=== PATIENT | female | born 1960 | race Caucasian/White ===

== ENCOUNTER 2023-12-24 07:04 | Day surgery (SDC) | payer BC, SELFPAY ==
[2023-12-17 07:25] VITALS: BMI 26.3
[2023-12-17 08:52] LABS: Hematocrit 45.1 % (37.0-47.0); Hemoglobin 15.5 g/dL (12.0-16.0); Mean Corp Hgb Conc. 34.4 g/dL (33.0-37.0); Mean Corpuscular Hgb 34.1 pg (27.0-31.0); Mean Corpuscular Volume 99.3 fL (81.0-99.0); Mean Platelet Volume 10.1 fL (7.4-10.4); Platelet Count 296 10^3/uL (130-400); Red Blood Cell Count 4.54 10^6/uL (4.20-5.40); Red Cell Dist. Width 13.3 % (11.5-14.5)
[2023-12-17 09:16] LABS: ALT (SGPT) 21 U/L (0-35); AST (SGOT) 25 U/L (14-36); Albumin 4.5 g/dl (3.5-5.0); Alkaline Phosphatase 66 U/L (38-126); Blood Urea Nitrogen 15 mg/dl (7-17); Calcium 9.4 mg/dl (8.4-10.2); Carbon Dioxide 28 mmol/L (22-30); Chloride 105 mmol/L (98-107); Estimated Creatinine Clearance 71 ml/min; Glucose 102 mg/dl (70-99); Potassium 4.1 mmol/L (3.5-5.1); Sodium 136 mmol/L (135-145); Total Bilirubin 0.5 mg/dl (0.2-1.3); Total Protein 7.4 g/dl (6.3-8.2); eGFR > 60.00
--- NOTE | 2023-12-17 12:16 | PTCARENOTE ---
Patients 2/5 EKG Abnormal- reviewed by Dr. Becerra, no additional interventions required
[2023-12-24] VITALS (13 sets, daily range): BP systolic 145–182; BP diastolic 65–86; BMI 26.3
[2023-12-24] MEDS: TYLENOL 1000 MG PO (10:49)
[2023-12-24] MEDS: NORMOSOL-R 1000 IV (10:58)
--- NOTE | 2023-12-24 12:27 | HP.FOC2 ---
Focused History & Physical
Chief Complaint
HPI:
Chief Complaint: Gallstones, abdominal pain
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 These typically
occur in the latter part of the day and early evening. She often does not awaken overnight. It is not present in the morning. Pain is located at the right costal margin and epigastric area rating to her back. No nausea or vomiting. She has
chronic constipation managed with Linzess and stool softeners. She has undergone extensive GI evaluation including upper and lower endoscopy, CT imaging as well as ultrasound. Essentially only notable finding is 17 mm gallstone, no biliary ductal
dilation. Patient presents today for suspected biliary colic for cholecystectomy.
Relevant Past Medical History: Other (High cholesterol, osteoporosis, vitamin D deficiency, insomnia, osteoarthritis, IBS-constipation, GERD, fibromyalgia, RA)
Relevant Social History: Tobacco Use
Relevant Family History: Negative
Relevant Past Surgical History: Positive for (Bladder sling, ptosis, bone spur on fifth toe, wisdom teeth extraction)
Review of Systems
Review of Pertinent Systems: All Systems Negative
Medication
See Medication form for detailed medications: Yes
Medication List (including Herbals & OTC):
melatonin 5 mg capsule 2.5 mg PO HS 05/09/12
linaclotide 290 mcg capsule (Linzess) 290 mcg PO DAILY 04/01/21
pantoprazole 40 mg tablet,delayed release 40 mg PO DAILY 04/01/21
trazodone 100 mg tablet 100 mg PO HS 04/01/21
Probiotic 1 cap PO DAILY 12/20/23
coenzyme Q10 100 mg capsule (CoQ-10) 200 mg PO DAILY 12/20/23
collagen 3 tab PO DAILY 12/20/23
ergocalciferol (vitamin D2) 1,250 mcg (50,000 unit) capsule (Vitamin D2) 1,250 mcg PO TUTH 12/20/23
hydroxychloroquine 200 mg tablet (Plaquenil) 200 mg PO BID 12/20/23
ibuprofen 600 mg tablet 600 mg PO Q6H PRN pain 12/20/23
multivitamin 1 tab PO DAILY 12/20/23
rosuvastatin 10 mg tablet (Crestor) 10 mg PO DAILY 12/20/23
sour wiley extract 1,000 mg capsule (Tart Wiley Extract) 1,000 mg PO DAILY 12/20/23
sulfasalazine 500 mg tablet 500 mg PO BID 12/20/23
turmeric 900 mg PO DAILY 12/20/23
Medications Reviewed: Yes
Allergies and Reactions
Patient has Allergies: No
Noted Allergies and Reactions:
Allergy/AdvReac Type Severity Reaction Status Date / Time
No Known Allergies Allergy Verified 12/20/23 08:02
Pertinent Physical Exam
All Other Systems: Negative
Head/Neck: Normal
Lungs: Normal
Heart: Normal
Abdomen: Normal
Extremities: Normal
Neurological: Normal
Diagnosis / Assessment
63-year-old female with suspected symptomatic cholelithiasis presenting today for cholecystectomy
Plan / Procedure
Laparoscopic cholecystectomy
Anesthesia/Sedation to be done by Anesthesia Provider: Yes
--- NOTE | 2023-12-24 12:30 | W.SUR.PREOP ---
Pre-Operative Surgical Note
-
I have examined this patient prior to the performance of the scheduled procedure.
The patient's condition is unchanged from the time of the current History and
Physical and the patient is able to undergo the scheduled procedure.
--- NOTE | 2023-12-24 13:45 | W.IMMPOSTOP ---
Addendum entered and electronically signed by Kong Rodriguez MD 12/24/23 14:29:
#[id number]
Original Note:
Surgical Immed Post Op Note
-
Primary Surgeon: Jennifer
Assisting Surgeon: Cecilia MAC
Pre-op Diagnosis: symptomatic cholelithiasis
Post-op Diagnosis: chronic calculous cholecystitis
Procedure Performed: lap debbie
Anesthesia Type: GETA + 0.25% Marcaine
Specimen / Cultures: GB
Estimated Blood Loss: 4mL
Complications: none
Operative Findings: Chronic adhesions to gallbladder. At least 1 stone. Cystic duct and artery individually identified and controlled with hemoclips. Gallbladder removed intact and extracted at epigastric 12 mm trocar site. Few filmy right-sided
abdominal wall adhesions in the region of the ascending colon.
== END 2023-12-24 15:35 | disposition home or self-care (01) ==
LOC: SDS 07:04
PROVIDERS: ATTENDING PHYSICIAN Surgery; FAMILY PHYSICIAN Nurse Practitioner Family
DX: K80.10 Calculus of gallbladder with chronic cholecystitis without obstruction (principal); D13.5 Benign neoplasm of extrahepatic bile ducts; K82.8 Other specified diseases of gallbladder
CPT/HCPCS: 47562; 88304; 36415; 80053; 85027; 93005

== ENCOUNTER → 2023-12-28 08:50 | Outpatient (REF) | payer BC, SELFPAY ==
[2023-12-28 09:36] LABS: % Basophils 0.7 % (0-2); % Eosinophils 1.5 % (0-6); % Immature Granulocytes 0.5 % (0-0.5); % Lymphocytes 18.2 % (20.5-51.1); % Monocytes 6.4 % (1.7-9.3); % Neutrophils 72.7 % (42.2-75.2); Absolute Basophils 0.1 10^3/uL (0-0.2); Absolute Eosinophils 0.2 10^3/uL (0-0.7); Absolute Immature Granulocytes 0.1 10^3/uL (0-0.05); Absolute Lymphocytes 2.2 10^3/uL (1.2-3.4); Absolute Monocytes 0.8 10^3/uL (0.1-0.6); Absolute Neutrophils 8.7 10^3/uL (1.4-6.5); Hematocrit 46.7 % (37.0-47.0); Hemoglobin 16.6 g/dL (12.0-16.0); Mean Corp Hgb Conc. 35.5 g/dL (33.0-37.0); Mean Corpuscular Hgb 33.6 pg (27.0-31.0); Mean Corpuscular Volume 94.5 fL (81.0-99.0); Mean Platelet Volume 9.8 fL (7.4-10.4); Nucleated Red Blood Cells % 0 %; Platelet Count 264 10^3/uL (130-400); Red Blood Cell Count 4.94 10^6/uL (4.20-5.40); Red Cell Dist. Width 12.8 % (11.5-14.5)
[2023-12-28 09:50] LABS: Erythrocyte Sed Rate 9 mm/hour (0-20)
[2023-12-28 10:05] LABS: ALT (SGPT) 21 U/L (0-35); AST (SGOT) 29 U/L (14-36); Albumin 4.6 g/dl (3.5-5.0); Alkaline Phosphatase 65 U/L (38-126); Blood Urea Nitrogen 19 mg/dl (7-17); Calcium 9.8 mg/dl (8.4-10.2); Carbon Dioxide 25 mmol/L (22-30); Chloride 105 mmol/L (98-107); Glucose 100 mg/dl (70-99); Sodium 139 mmol/L (135-145); Total Bilirubin 0.7 mg/dl (0.2-1.3); Total Protein 7.7 g/dl (6.3-8.2); eGFR > 60.00
[2023-12-30 03:00] LABS: CCP Antibody IgG/IgA 180 Units (0-19)
[2023-12-31 17:02] LABS: Rheumatoid Agglutinin Positive (<10 IU)
[2023-12-31 17:33] LABS: Rheumatoid Agg. Semi-quant 1024 IU
== END ==
LOC: REG 08:50
PROVIDERS: ATTENDING PHYSICIAN Internal Medicine Rheumatology; FAMILY PHYSICIAN Nurse Practitioner Family
DX: E55.9 Vitamin D deficiency, unspecified (principal); M05.79 Rheumatoid arthritis with rheumatoid factor of multiple sites without organ or systems involvement; M79.7 Fibromyalgia
CPT/HCPCS: 36415; 80053; 85025; 85652; 86140; 86200; 86430; 86431

== ENCOUNTER → 2024-01-30 08:50 | Outpatient (REF) | payer BC, SELFPAY ==
[2024-01-30 12:37] LABS: ALT (SGPT) 19 U/L (0-35); AST (SGOT) 23 U/L (14-36); Albumin 4.5 g/dl (3.5-5.0); Alkaline Phosphatase 67 U/L (38-126); Blood Urea Nitrogen 10 mg/dl (7-17); Calcium 9.7 mg/dl (8.4-10.2); Carbon Dioxide 29 mmol/L (22-30); Chloride 103 mmol/L (98-107); Glucose 100 mg/dl (70-99); HDL Cholesterol 60 mg/dl; LDL Cholesterol, Calculated 37 mg/dl; Potassium 3.9 mmol/L (3.5-5.1); Sodium 140 mmol/L (135-145); Total Bilirubin 0.6 mg/dl (0.2-1.3); Total Cholesterol 114 mg/dl (50-199); Total Protein 7.3 g/dl (6.3-8.2); Triglyceride 89 mg/dl (10-149); Very Low Density Lipoprotein 17 mg/dl (0-30); eGFR > 60.00
[2024-01-30 12:48] LABS: % Basophils 0.8 % (0-2); % Eosinophils 1.4 % (0-6); % Immature Granulocytes 0.3 % (0-0.5); % Lymphocytes 28.3 % (20.5-51.1); % Monocytes 4.9 % (1.7-9.3); % Neutrophils 64.3 % (42.2-75.2); Absolute Basophils 0.1 10^3/uL (0-0.2); Absolute Eosinophils 0.2 10^3/uL (0-0.7); Absolute Monocytes 0.5 10^3/uL (0.1-0.6); Absolute Neutrophils 6.9 10^3/uL (1.4-6.5); Hematocrit 45.3 % (37.0-47.0); Hemoglobin 15.2 g/dL (12.0-16.0); Mean Corp Hgb Conc. 33.6 g/dL (33.0-37.0); Mean Corpuscular Hgb 32.7 pg (27.0-31.0); Mean Corpuscular Volume 97.4 fL (81.0-99.0); Mean Platelet Volume 10.7 fL (7.4-10.4); Nucleated Red Blood Cells % 0 %; Platelet Count 267 10^3/uL (130-400); Red Blood Cell Count 4.65 10^6/uL (4.20-5.40); Red Cell Dist. Width 13.9 % (11.5-14.5); White Blood Cell Count 10.7 10^3/uL (4.8-10.8)
[2024-01-30 13:00] LABS: TSH Reflex To Free T4 2.39 uIU/ml (0.47-4.68)
[2024-01-30 14:30] LABS: Glycohemoglobin (HgbA1c) 5.7 % (4.0-5.6)
[2024-01-31 15:57] LABS: Rheumatoid Agglutinin Positive (<10 IU)
[2024-01-31 17:59] LABS: Rheumatoid Agg. Semi-quant 1024 IU
== END ==
LOC: HWLAB 08:50
PROVIDERS: ATTENDING PHYSICIAN Nurse Practitioner Family
DX: Z00.00 Encounter for general adult medical examination without abnormal findings (principal); E55.9 Vitamin D deficiency, unspecified; F17.200 Nicotine dependence, unspecified, uncomplicated; M81.0 Age-related osteoporosis without current pathological fracture; E66.3 Overweight; I70.90 Unspecified atherosclerosis; E78.2 Mixed hyperlipidemia; M79.7 Fibromyalgia; K21.9 Gastro-esophageal reflux disease without esophagitis; M05.9 Rheumatoid arthritis with rheumatoid factor, unspecified; R73.01 Impaired fasting glucose
CPT/HCPCS: 36415; 80053; 80061; 83036; 84443; 85025; 86430; 86431

== ENCOUNTER → 2024-03-31 16:48 | Outpatient (REF) | payer BC, SELFPAY | LOC: RAD 16:48 | PROVIDERS: ATTENDING PHYSICIAN Internal Medicine Rheumatology; FAMILY PHYSICIAN Nurse Practitioner Family | DX: J18.9 Pneumonia, unspecified organism (principal); M05.79 Rheumatoid arthritis with rheumatoid factor of multiple sites without organ or systems involvement | CPT/HCPCS: 71045 ==

== ENCOUNTER → 2024-04-12 08:07 | Outpatient (REF) | payer BC, SELFPAY | LOC: RAD 08:07 | PROVIDERS: ATTENDING PHYSICIAN Internal Medicine Rheumatology; FAMILY PHYSICIAN Nurse Practitioner Family | DX: J18.9 Pneumonia, unspecified organism (principal) | CPT/HCPCS: 71046 ==

== ENCOUNTER → 2024-05-30 06:52 | Outpatient (REF) | payer BC, SELFPAY ==
[2024-05-30 09:49] LABS: % Basophils 0.4 % (0-2); % Eosinophils 1.1 % (0-6); % Immature Granulocytes 0.3 % (0-0.5); % Lymphocytes 26.4 % (20.5-51.1); % Monocytes 4.7 % (1.7-9.3); % Neutrophils 67.1 % (42.2-75.2); Absolute Eosinophils 0.1 10^3/uL (0-0.7); Absolute Monocytes 0.5 10^3/uL (0.1-0.6); Absolute Neutrophils 7.6 10^3/uL (1.4-6.5); Hemoglobin 13.9 g/dL (12.0-16.0); Mean Corp Hgb Conc. 35.6 g/dL (33.0-37.0); Mean Corpuscular Hgb 34.5 pg (27.0-31.0); Mean Corpuscular Volume 96.8 fL (81.0-99.0); Mean Platelet Volume 9.8 fL (7.4-10.4); Nucleated Red Blood Cells % 0 %; Platelet Count 389 10^3/uL (130-400); Red Blood Cell Count 4.03 10^6/uL (4.20-5.40); Red Cell Dist. Width 13.9 % (11.5-14.5); White Blood Cell Count 11.4 10^3/uL (4.8-10.8)
[2024-05-30 09:59] LABS: ALT (SGPT) 38 U/L (0-35); AST (SGOT) 42 U/L (14-36); Albumin 4.8 g/dl (3.5-5.0); Alkaline Phosphatase 60 U/L (38-126); Blood Urea Nitrogen 13 mg/dl (7-17); Calcium 10.2 mg/dl (8.4-10.2); Carbon Dioxide 27 mmol/L (22-30); Chloride 106 mmol/L (98-107); Glucose 111 mg/dl (70-99); HDL Cholesterol 69 mg/dl; LDL Cholesterol, Calculated 61 mg/dl; Potassium 4.3 mmol/L (3.5-5.1); Sodium 141 mmol/L (135-145); Total Bilirubin 0.5 mg/dl (0.2-1.3); Total Cholesterol 146 mg/dl (50-199); Total Protein 7.3 g/dl (6.3-8.2); Triglyceride 80 mg/dl (10-149); Very Low Density Lipoprotein 16 mg/dl (0-30); eGFR > 60.00
[2024-05-30 12:36] LABS: Erythrocyte Sed Rate 16 mm/hour (0-20)
[2024-05-31 22:17] LABS: CCP Antibody IgG/IgA 170 Units (0-19)
== END ==
LOC: HWLAB 06:52
PROVIDERS: ATTENDING PHYSICIAN Internal Medicine Rheumatology; FAMILY PHYSICIAN Nurse Practitioner Family
DX: M05.79 Rheumatoid arthritis with rheumatoid factor of multiple sites without organ or systems involvement (principal)
CPT/HCPCS: 36415; 80053; 80061; 85025; 85652; 86200; 86430

== ENCOUNTER → 2024-06-10 07:24 | Outpatient (REF) | payer BC, SELFPAY | LOC: HWRCS 07:24 | PROVIDERS: ATTENDING PHYSICIAN Nuclear Medicine Nuclear Cardiology | DX: R94.31 Abnormal electrocardiogram [ECG] [EKG] (principal); I34.0 Nonrheumatic mitral (valve) insufficiency | CPT/HCPCS: 93306 ==

== ENCOUNTER → 2024-06-27 09:52 | Outpatient (REF) | payer BC, SELFPAY | LOC: HWWDC 09:52 | PROVIDERS: ATTENDING PHYSICIAN Nurse Practitioner Family | DX: Z12.31 Encounter for screening mammogram for malignant neoplasm of breast (principal) | CPT/HCPCS: 77063; 77067 ==

== ENCOUNTER → 2024-09-19 06:50 | Outpatient (REF) | payer BC, SELFPAY | LOC: HWRAD 06:50 | PROVIDERS: ATTENDING PHYSICIAN Internal Medicine Critical Care Medicine; FAMILY PHYSICIAN Nurse Practitioner Family | DX: F17.210 Nicotine dependence, cigarettes, uncomplicated (principal) | CPT/HCPCS: 71271 ==

== ENCOUNTER 2024-10-31 06:35 | Emergency (ER) | payer BC, SELFPAY ==
[2024-10-31 06:39] VITALS: BP 189/80
--- NOTE | 2024-10-31 08:03 | ED.GENMED ---
History of Present Illness
General
Chief Complaint: Abdominal Pain
Source: patient
Time Seen by Provider: 10/31/24 07:49
History of Present Illness
History of Present Illness:
64-year-old female with past medical history of emphysema, GERD, rheumatoid arthritis, status postcholecystectomy and December of this year presenting to the emergency department with 6 to 7 days of right upper quadrant abdominal pain that radiates
towards the right upper part of her back described to be worse at nighttime, aching but with intermittent sharper bursts of pain and without any other associated symptoms. Patient has not attempted any medications prior to arrival. She denies any
associated nausea, vomiting, fevers, bowel changes or urinary symptoms, diminished p.o. intake to solids or liquids. Patient states that she was started on Rinvoq for her RA in April and is wondering if this may be related to her symptoms. No other
concerns presently
Past History
Past History
ED Past Medical History: COPD (Emphysema), GERD, Hypercholesterolemia and Other (Vitamin D deficiency, chronic constipation, hypercholesteremia, liver cyst); Negative Other
ED Past Surgical History: Cholecystectomy, Orthopedic (Bone spurs removed bilateral fifth toes) and Urological (Bladder sling)
Social History
Tobacco: Smoker (Three quarters of a pack per day)
Alcohol: None
Drug: None
Personal:
Living: with family
Family History
Family History: Negative Diabetes, Hypertension or CAD
Review of Systems
Review of Systems
All Other Systems: ROS reviewed and negative except as documented in HPI and ROS
Phy Exam
Physical Exam
Physical Exam:
GENERAL: Alert , in no apparent distress but does appear mildly uncomfortable
EYE: clear conjunctiva b/l
HEAD: NCAT
ENT: mmm.
CARDIAC: Regular rate and rhythm .
LUNGS: Clear breath sounds bilaterally, no acute respiratory distress, no wheezes/rales/rhonchi
ABDOMEN: Soft, mild to moderate tenderness within the epigastrium, right upper quadrant and right upper back distal to the scapula, no r/g, no cvat
NEUROLOGICAL: Alert and oriented
SKIN: Warm and dry, skin intact.
MUSCULOSKELETAL: No edema, well perfused.
PSYCH: Normal and appropriate interaction.
Scores
Heart Failure Risk
Heart Failure Risk Score: Not Applicable
Heart Score for Chest Pain Patients
STEMI patient?: Not applicable
Withdrawal Assessment of Alcohol
Withdrawal Assessment Completed?: Not applicable
Course
Orders/Labs/Results
Orders:
Orders
10/31/24 07:55
Urinalysis Reflex To Culture Urgent
Date Specimen was Collected: 10/31/24
Time Specimen was Collected: 07:53
Urine Microscopic Reflex Cult Urgent
10/31/24 07:58
Electrocardiogram (*1) Urgent
Reason for Study: Abdominal Pain
CT Abd/pelvis W Iv Cont Urgent
Comment:
Reason For Exam: right upper abd/epigastric pain, previous choley
EKG- Treatment ONCE
10/31/24 08:01
Complete Blood Count/With Diff Urgent
Comprehensive Metabolic Panel Urgent
Lipase Urgent
Troponin I Urgent
Abnormal Lab Results
10/31/24 1224
07:55 08:01
WBC 11.1 H 10^3/uL
(4.8-10.8)
RBC 4.01 L 10^6/uL
(4.20-5.40)
MCH 34.9 H pg
(27.0-31.0)
Absolute Neuts (auto) 8.2 H 10^3/uL
(1.4-6.5)
Absolute Monos (auto) 0.7 H 10^3/uL
(0.1-0.6)
Lymphocytes % 17.9 L %
(20.5-51.1)
Urine Bilirubin 1+ A
(Negative)
Leukocyte Esterase Rfl Trace A
(Negative)
10/31/24 08:01
10/31/24 08:01
Vital Signs
Initial and Last Documented VS:
Initial Vital Signs
Temp Pulse Resp BP Pulse Ox
98.9 F 77 20 189/80 97
10/31/24 06:39 10/31/24 06:39 10/31/24 06:39 10/31/24 06:39 10/31/24 06:39
Last Documented Vital Signs
Temp Pulse Resp BP Pulse Ox
98.9 F 67 18 172/70 96
10/31/24 06:39 10/31/24 10:56 10/31/24 10:56 10/31/24 10:56 10/31/24 10:56
MDM/Problems Addressed
Differential Diagnosis Includes:
GERD, gastritis, pancreatitis, retained gallstones, atypical ACS, appendicitis
MDM/Problems Addressed:
64-year-old female presenting to the ER for evaluation of right upper quadrant abdominal pain that has been ongoing for the last 6 or 7 days, status postcholecystectomy from earlier this year. No other symptoms other than pain. Pain is clearly
reproducible on exam. On a biologic medication for her RA. Patient states she stopped taking this 3 days ago however because she thought it could be side effect from the medication. Will check labs including troponin the EKG for an atypical ACS
presentation although less likely as part of her diagnosis. CT versus ultrasound considered and ultimately decided on CT scan given patient is status post prior cholecystectomy. Patient declining anything for pain at this time
Chronic conditions affecting care: Previous abdomnial surgery
*Radiology
Radiology exam reviewed: radiology read reviewed
*Pulse Oximetry
Patient hypoxic: no
*EKG
Interpreted by ED Provider?: Yes
Heart Rate: 60
Rate: normal
Rhythm: sinus and PAC's
[place]: normal axis
Ischemia: T-wave inversion (V3-V6)
*Propellant Charge Zone Assembler Interpretation
Rate: normal
Rhythm: sinus
*Critical Care Note
Total Time (30-74mins, 75-104mins- exclusive of procedures): Not Applicable
Data Reviewed
Review of Other/Old Records Reveals: Labs and Records
Patient Management
Escalation/DeEscalation of care consider admission/obs:
Patient CT scan shows no acute abnormalities of the abdomen or pelvis. Her workup was largely unremarkable with only a slightly elevated leukocytosis noted. Blood pressure slightly elevated and patient has a follow-up already arranged with her
primary care provider for November 10. Question GERD/gastritis/duodenitis as possible diagnosis. Will trial Carafate for the patient at home. Brat diet advised. Avoidance of NSAIDs also advised. Aware of return precautions and agreeable with
this plan.
ED Attending Note
-
Portions of this chart may have been created with voice recognition software.� Occasional wrong word or��sound alike� substitutions may have occurred due to the inherent limitations of voice recognition software.
Discharge Plan
Departure
Patient Disposition: Home (Routine Discharge)
Date of Disposition: 10/31/24
Time of Disposition: 10:47
Patient with high blood pressure during this ER visit?: Yes
Discharge Problem:
Abdominal pain
Instructions: Abdominal Pain
Prescriptions:
New
sucralfate [Carafate] 100 mg/mL suspension
10 ml PO BID Qty: 500 0RF
No Action
melatonin 5 MG capsule
2.5 mg PO HS
trazodone 100 MG tablet
100 mg PO HS
pantoprazole 40 MG tablet,delayed release (DR/EC)
40 mg PO DAILY
Linzess 290 MCG capsule
290 mcg PO DAILY
multivitamin Tablet
1 tab PO DAILY
sulfasalazine 500 mg Tablet
500 mg PO BID
ergocalciferol (vitamin D2) [Vitamin D2] 1,250 mcg (50,000 unit) Capsule
1,250 mcg PO TUTH
hydroxychloroquine [Plaquenil] 200 mg Tablet
200 mg PO BID
coenzyme Q10 [CoQ-10] 100 mg Capsule
200 mg PO DAILY
rosuvastatin [Crestor] 10 mg Tablet
10 mg PO DAILY
Tart Wiley Extract 1,000 mg Capsule
1,000 mg PO DAILY
Probiotic
1 cap PO DAILY
collagen
3 tab PO DAILY
turmeric
900 mg PO DAILY
ibuprofen 600 mg Tablet
600 mg PO Q6H PRN (Reason: pain)
acetaminophen [Tylenol Extra Strength] 500 mg tablet
1,000 mg PO Q6HPRN PRN (Reason: mild pain) Qty: 1 0RF
polyethylene glycol 3350 [Miralax] 17 gram/dose powder
4 g PO DAILY PRN (Reason: Constipation) Qty: 119 0RF
Rx Instructions:
start a laxative such as MIRALAX on day 2 after surgery if no bowel movement yet as long as no nausea/vomiting and passing gas
oxycodone 5 mg tablet
5 mg PO Q4HPRN PRN (Reason: breakthrough/severe pain) Qty: 7 0RF
Referrals:
Haresh Victor CRNP [Family Provider] -
Interventions
Interventions:
*Risk Screen - Suicide Last Done: 10/31/24 06:39
*General Assessment Last Done: 10/31/24 06:39
*Neglect/Abuse Screening Last Done: 10/31/24 06:39
ED- Fall Risk Assessment Last Done: 10/31/24 06:39
*ED COVID-19 Vaccine History Last Done: 10/31/24 06:39
*Nursing Disposition Last Done: 10/31/24 10:57
NW-Dhaxpt-Khdfeweehx Assessment Last Done: 10/31/24 08:05
Discharge Date and Time
Discharge Date/Time: 10/31/24 10:58
Print Language: BARBADIAN
[2024-10-31 08:04] VITALS: BMI 26.6
[2024-10-31 08:18] LABS: % Basophils 0.5 % (0-2); % Eosinophils 0.9 % (0-6); % Immature Granulocytes 0.4 % (0-0.5); % Lymphocytes 17.9 % (20.5-51.1); % Monocytes 6.7 % (1.7-9.3); % Neutrophils 73.6 % (42.2-75.2); Absolute Basophils 0.1 10^3/uL (0-0.2); Absolute Eosinophils 0.1 10^3/uL (0-0.7); Absolute Monocytes 0.7 10^3/uL (0.1-0.6); Absolute Neutrophils 8.2 10^3/uL (1.4-6.5); Hematocrit 39.7 % (37.0-47.0); Mean Corp Hgb Conc. 35.3 g/dL (33.0-37.0); Mean Corpuscular Hgb 34.9 pg (27.0-31.0); Mean Platelet Volume 9.5 fL (7.4-10.4); Nucleated Red Blood Cells % 0 %; Platelet Count 304 10^3/uL (130-400); Red Blood Cell Count 4.01 10^6/uL (4.20-5.40); Red Cell Dist. Width 13.3 % (11.5-14.5); White Blood Cell Count 11.1 10^3/uL (4.8-10.8)
[2024-10-31 08:27] LABS: Urine Albumin Trace (Neg - Trace); Urine Bilirubin 1+ (Negative); Urine Character Clear (Clear); Urine Color Yellow; Urine Glucose Negative (Negative); Urine Ketone Negative (Negative); Urine Leukocyte Trace (Negative); Urine Nitrite Negative (Negative); Urine Occult Blood Negative (Negative); Urine Urobilinogen 1+ (Neg - 1+)
[2024-10-31 08:49] LABS: ALT (SGPT) 31 U/L (0-35); AST (SGOT) 32 U/L (14-36); Albumin 4.8 g/dl (3.5-5.0); Alkaline Phosphatase 57 U/L (38-126); Blood Urea Nitrogen 15 mg/dl (7-17); Calcium 9.5 mg/dl (8.4-10.2); Carbon Dioxide 28 mmol/L (22-30); Chloride 104 mmol/L (98-107); Estimated Creatinine Clearance 69 ml/min; Glucose 99 mg/dl (70-99); Lipase 102 U/L (23-300); Potassium 3.9 mmol/L (3.5-5.1); Sodium 140 mmol/L (135-145); Total Bilirubin 0.6 mg/dl (0.2-1.3); Total Protein 7.4 g/dl (6.3-8.2); eGFR > 60.00
[2024-10-31 08:59] LABS: Troponin I < 0.012 ng/ml
[2024-10-31 09:28] LABS: Urine Amorphous Seen; Urine Squamous Cell >30 /LPF (Few)
[2024-10-31 09:29] LABS: Urine Red Blood Cell 0-2 /HPF (0-2)
[2024-10-31 10:56] VITALS: BP 172/70
== END 2024-10-31 10:58 | disposition home or self-care (01) ==
LOC: EMR 06:35
PROVIDERS: Physician Assistant Medical; EMERGENCY PHYSICIAN Emergency Medicine; FAMILY PHYSICIAN Nurse Practitioner Family
DX: R10.9 Unspecified abdominal pain (principal); J43.9 Emphysema, unspecified; K21.9 Gastro-esophageal reflux disease without esophagitis; M06.9 Rheumatoid arthritis, unspecified; E78.00 Pure hypercholesterolemia, unspecified; E55.9 Vitamin D deficiency, unspecified; F17.210 Nicotine dependence, cigarettes, uncomplicated; Z90.49 Acquired absence of other specified parts of digestive tract
CPT/HCPCS: 99284; 74177; 80053; 81003; 81015; 83690; 84484; 85025; 93005; Q9967

== ENCOUNTER → 2024-11-06 07:54 | Outpatient (REF) | payer BC, SELFPAY ==
[2024-11-06 09:22] LABS: % Basophils 0.4 % (0-2); % Eosinophils 0.7 % (0-6); % Immature Granulocytes 0.3 % (0-0.5); % Lymphocytes 25.9 % (20.5-51.1); % Neutrophils 66.7 % (42.2-75.2); Absolute Basophils 0.1 10^3/uL (0-0.2); Absolute Eosinophils 0.1 10^3/uL (0-0.7); Absolute Lymphocytes 3.6 10^3/uL (1.2-3.4); Absolute Monocytes 0.8 10^3/uL (0.1-0.6); Absolute Neutrophils 9.3 10^3/uL (1.4-6.5); Hematocrit 42.2 % (37.0-47.0); Hemoglobin 14.8 g/dL (12.0-16.0); Mean Corp Hgb Conc. 35.1 g/dL (33.0-37.0); Mean Corpuscular Hgb 35.2 pg (27.0-31.0); Mean Corpuscular Volume 100.2 fL (81.0-99.0); Mean Platelet Volume 9.5 fL (7.4-10.4); Nucleated Red Blood Cells % 0 %; Platelet Count 336 10^3/uL (130-400); Red Blood Cell Count 4.21 10^6/uL (4.20-5.40); Red Cell Dist. Width 13.4 % (11.5-14.5); White Blood Cell Count 13.9 10^3/uL (4.8-10.8)
[2024-11-06 10:04] LABS: ALT (SGPT) 31 U/L (0-35); AST (SGOT) 34 U/L (14-36); Albumin 5.1 g/dl (3.5-5.0); Alkaline Phosphatase 52 U/L (38-126); Blood Urea Nitrogen 14 mg/dl (7-17); Calcium 10.1 mg/dl (8.4-10.2); Carbon Dioxide 24 mmol/L (22-30); Chloride 102 mmol/L (98-107); Glucose 117 mg/dl (70-99); HDL Cholesterol 78 mg/dl; LDL Cholesterol, Calculated 79 mg/dl; Potassium 4.3 mmol/L (3.5-5.1); Sodium 139 mmol/L (135-145); Total Bilirubin 0.5 mg/dl (0.2-1.3); Total Cholesterol 175 mg/dl (50-199); Total Protein 7.9 g/dl (6.3-8.2); Triglyceride 92 mg/dl (10-149); Very Low Density Lipoprotein 18 mg/dl (0-30); eGFR > 60.00
[2024-11-06 10:41] LABS: Erythrocyte Sed Rate 12 mm/hour (0-20)
[2024-11-07 14:45] LABS: CCP Antibody IgG/IgA 158 Units (0-19)
== END ==
LOC: HWLAB 07:54
PROVIDERS: ATTENDING PHYSICIAN Internal Medicine Rheumatology; FAMILY PHYSICIAN Nurse Practitioner Family
DX: M05.79 Rheumatoid arthritis with rheumatoid factor of multiple sites without organ or systems involvement (principal); E88.810 Metabolic syndrome
CPT/HCPCS: 36415; 80053; 80061; 85025; 85652; 86200; 86430

== ENCOUNTER → 2025-05-05 07:13 | Outpatient (REF) | payer BC, SELFPAY ==
[2025-05-05 08:42] LABS: % Basophils 0.6 % (0-2); % Eosinophils 0.8 % (0-6); % Immature Granulocytes 0.2 % (0-0.5); % Monocytes 5.3 % (1.7-9.3); % Neutrophils 68.1 % (42.2-75.2); Absolute Basophils 0.1 10^3/uL (0-0.2); Absolute Eosinophils 0.1 10^3/uL (0-0.7); Absolute Monocytes 0.6 10^3/uL (0.1-0.6); Absolute Neutrophils 8.2 10^3/uL (1.4-6.5); Hemoglobin 14.5 g/dL (12.0-16.0); Mean Corp Hgb Conc. 35.4 g/dL (33.0-37.0); Mean Corpuscular Hgb 33.6 pg (27.0-31.0); Mean Corpuscular Volume 94.9 fL (81.0-99.0); Mean Platelet Volume 9.6 fL (7.4-10.4); Nucleated Red Blood Cells % 0 %; Platelet Count 363 10^3/uL (130-400); Red Blood Cell Count 4.32 10^6/uL (4.20-5.40); White Blood Cell Count 12.1 10^3/uL (4.8-10.8)
[2025-05-05 09:11] LABS: Erythrocyte Sed Rate 6 mm/hour (0-20)
[2025-05-05 11:35] LABS: Glycohemoglobin (HgbA1c) 5.9 % (4.0-5.6)
[2025-05-05 11:54] LABS: ALT (SGPT) 28 U/L (0-35); AST (SGOT) 28 U/L (14-36); Albumin 5.1 g/dl (3.5-5.0); Alkaline Phosphatase 58 U/L (38-126); Blood Urea Nitrogen 13 mg/dl (7-17); Calcium 9.6 mg/dl (8.4-10.2); Carbon Dioxide 23 mmol/L (22-30); Chloride 107 mmol/L (98-107); Glucose 116 mg/dl (70-99); HDL Cholesterol 75 mg/dl; LDL Cholesterol, Calculated 81 mg/dl; Potassium 4.3 mmol/L (3.5-5.1); Sodium 142 mmol/L (135-145); Total Bilirubin 0.6 mg/dl (0.2-1.3); Total Cholesterol 186 mg/dl (50-199); Total Protein 8.1 g/dl (6.3-8.2); Triglyceride 153 mg/dl (10-149); Very Low Density Lipoprotein 30 mg/dl (0-30); eGFR > 60.00
[2025-05-05 13:08] LABS: C-Reactive Protein < 5.00 mg/L (0.0-10.00)
[2025-05-05 13:41] LABS: Cortisol, Random 13.7 ug/dl
[2025-05-07 07:29] LABS: CCP Antibody IgG/IgA 228 Units (0-19)
[2025-05-07 13:36] LABS: Rheumatoid Agg. Semi-quant 2048 IU; Rheumatoid Agglutinin Positive (<10 IU)
== END ==
LOC: HWLAB 07:13
PROVIDERS: ATTENDING PHYSICIAN Internal Medicine Rheumatology; FAMILY PHYSICIAN Nurse Practitioner Family
DX: E55.9 Vitamin D deficiency, unspecified (principal); F17.200 Nicotine dependence, unspecified, uncomplicated; M81.0 Age-related osteoporosis without current pathological fracture; E66.3 Overweight; I70.90 Unspecified atherosclerosis; E78.2 Mixed hyperlipidemia; M79.7 Fibromyalgia; K21.9 Gastro-esophageal reflux disease without esophagitis; M05.9 Rheumatoid arthritis with rheumatoid factor, unspecified; R73.01 Impaired fasting glucose; M05.79 Rheumatoid arthritis with rheumatoid factor of multiple sites without organ or systems involvement
CPT/HCPCS: 36415; 80053; 80061; 82533; 83036; 84443; 85025; 85652; 86140; 86200; 86430; 86431

== ENCOUNTER → 2025-05-13 09:49 | Outpatient (REF) | payer BC, SELFPAY | LOC: HWRAD 09:49 | PROVIDERS: ATTENDING PHYSICIAN Nurse Practitioner Family | DX: M54.6 Pain in thoracic spine (principal) | CPT/HCPCS: 72050 ==

== ENCOUNTER → 2025-05-20 06:29 | Outpatient (REF) | payer BC, SELFPAY | LOC: RAD 06:29 | PROVIDERS: ATTENDING PHYSICIAN Nurse Practitioner Family | DX: G90.01 Carotid sinus syncope (principal); I65.23 Occlusion and stenosis of bilateral carotid arteries | CPT/HCPCS: 93880 ==

== ENCOUNTER → 2025-06-29 12:57 | Outpatient (REF) | payer BC, SELFPAY | LOC: HWWDC 12:57 | PROVIDERS: ATTENDING PHYSICIAN Nurse Practitioner Family; REFERRING PHYSICIAN Internal Medicine Rheumatology | DX: Z12.31 Encounter for screening mammogram for malignant neoplasm of breast (principal); M81.0 Age-related osteoporosis without current pathological fracture | CPT/HCPCS: 77063; 77067; 77080 ==